=== PATIENT | female | born 2000 | race Two or more races ===

== ENCOUNTER 2022-05-03 03:26 | Emergency (ER) | payer OTHER ==
[~2022-05-03] VITALS: Ht 162.6 cm; Wt 65.9 kg
[2022-05-03 05:46] VITALS: BP 136/80
== END 2022-05-03 05:47 ==
LOC: EMS 03:26
DX: Z11.1 Encounter for screening for respiratory tuberculosis (principal)
CPT/HCPCS: 71045; 99283